=== PATIENT | male | born 1955 | race Caucasian/White ===

== ENCOUNTER 2018-05-16 16:00 | Inpatient (IN) | payer MEDICARE, OTHER ==
[~2018-05-16] VITALS: Ht 167.6 cm; Wt 69.5 kg
[2018-05-16] MEDS ORDERED: DOCUSATE SODIUM 283 MG/5 ML MINI-ENEMA PR PRN (17:00)
[2018-05-16] MEDS ORDERED: ACETAMINOPHEN 650 MG/20.3 ML SOLUTION UDCUP NG PRN (17:30)
[2018-05-16 18:57] VITALS: BP 150/78
[2018-05-16] MEDS ORDERED: DEXTROSE 50%-WATER 25 GM/50 ML SYRINGE IVP PRN (19:00)
[2018-05-16 19:50] VITALS: BP 162/89
[2018-05-16] MEDS: CARVEDILOL 6.25 MG TABLET NG SCH (19:51)
[2018-05-16 20:34] LABS: GLUCOMETER DEV NAME(LOC) 2WR.2; GLUCOSE,POINT OF CARE 87 MG/DL (70-110)
[2018-05-16 21:28] VITALS: BP 140/82
[2018-05-16] MEDS: ACETAMINOPHEN 650 MG/20.3 ML SOLUTION UDCUP NG PRN (21:35)
[2018-05-16] MEDS: SENNA 187 MG TABLET NG SCH (21:36)
[2018-05-16] MEDS: ATORVASTATIN CALCIUM 40 MG TABLET NG SCH (21:36)
[2018-05-16] MEDS: DOCUSATE SODIUM 100 MG CAPSULE NG SCH (21:36)
[2018-05-16] MEDS: HEPARIN SODIUM,PORCINE 5,000 UNITS/ML VIAL SQ SCH (23:58)
[2018-05-17 00:09] LABS: GLUCOMETER DEV NAME(LOC) 2WR.2; GLUCOSE,POINT OF CARE 125 MG/DL (70-110)
[2018-05-17 00:37] VITALS: BP 136/59
[2018-05-17 05:44] LABS: GLUCOMETER DEV NAME(LOC) 2WR.2; GLUCOSE,POINT OF CARE 156 MG/DL (70-110)
[2018-05-17] MEDS: LANSOPRAZOLE 30 MG SOLUBLE TABLET NG SCH ×2 (05:59→06:07)
[2018-05-17 06:35] LABS: BASOPHILS % (AUTO) 0.2 % (0.0-2.0); HEMOGLOBIN 11.5 g/dL (13.5-17.5); LYMPHOCYTES # (AUTO) 1.2 K/uL (1.0-4.8); LYMPHOCYTES % (AUTO) 15.6 % (22.0-44.0); MEAN CORPUSCULAR HEMOGLOBIN 35.6 pg (26.0-34.0); MEAN CORPUSCULAR HGB CONC 35.9 G/dL (31.0-37.0); MEAN CORPUSCULAR VOLUME 99 fL (80-100); MONOCYTES # (AUTO) 0.8 K/uL (0.1-1.0); MONOCYTES % (AUTO) 10.5 % (2.0-9.0); NEUTROPHILS # (AUTO) 5.4 K/uL (1.8-7.7); NEUTROPHILS % (AUTO) 70.7 % (40.0-70.0); PLATELET COUNT (AUTO) 176 K/uL (150-450); RED BLOOD CELL COUNT(AUTO) 3.22 MIL/uL (4.50-5.90); RED CELL DISTRIBUTION WIDTH 13.9 % (11.5-14.5)
[2018-05-17] MEDS: INSULIN REGULAR, HUMAN 100 UNITS/ML SQ PRN ×3 (06:38→20:15)
[2018-05-17 07:17] LABS: ALBUMIN 3.4 g/dL (3.4-5.0); BILIRUBIN,TOTAL 0.4 mg/dL (0.1-1.0); CALCIUM, TOTAL 8.9 mg/dL (8.8-10.5); CREATININE 13.06 mg/dL (0.60-1.30); POTASSIUM 4.3 mmol/L (3.5-5.1); TOTAL PROTEIN, SERUM 7.7 g/dL (6.4-8.2)
[2018-05-17 08:00] VITALS: BP 147/87
[2018-05-17] MEDS: MULTIVITAMINS WITH MINERALS, THERAPEUTIC TABLET NG SCH (08:17)
[2018-05-17] MEDS: DOCUSATE SODIUM 100 MG CAPSULE NG SCH ×2 (08:17→21:09)
[2018-05-17] MEDS: AmLODIPine BESYLATE 10 MG TABLET NG SCH (08:17)
[2018-05-17] MEDS: CARVEDILOL 6.25 MG TABLET NG SCH ×2 (08:17→19:58)
[2018-05-17] MEDS: ASPIRIN 81 MG CHEWABLE TABLET NG SCH (08:17)
[2018-05-17] MEDS: HEPARIN SODIUM,PORCINE 5,000 UNITS/ML VIAL SQ SCH (08:18)
[2018-05-17] MEDS: ACETAMINOPHEN 650 MG/20.3 ML SOLUTION UDCUP NG PRN ×2 (13:37→21:01)
[2018-05-17] MEDS: VITAMIN B COMP/VIT C/FOLIC ACID CAPSULE PO SCH (13:38)
[2018-05-17 18:29] LABS: GLUCOMETER DEV NAME(LOC) 2WR.1; GLUCOSE,POINT OF CARE 145 MG/DL (70-110)
[2018-05-17 19:10] VITALS: BP 127/76
[2018-05-17 19:28] LABS: GLUCOMETER DEV NAME(LOC) 2WR.2; GLUCOSE,POINT OF CARE 201 MG/DL (70-110)
[2018-05-17] MEDS: SEVELAMER CARBONATE 800 MG POWDER PACKET PO SCH (19:57)
[2018-05-17] MEDS ORDERED: AMLO-512 PO (20:23)
[2018-05-17] MEDS ORDERED: SUCR500T PO (20:23)
[2018-05-17] MEDS ORDERED: PANT40TA25 PO (20:23)
[2018-05-17] MEDS ORDERED: CARV6 PO (20:23)
[2018-05-17] MEDS ORDERED: ACET500C4 PO (20:23)
[2018-05-17] MEDS ORDERED: FOLI0.8T22 PO (20:23)
[2018-05-17] MEDS ORDERED: ATOR40TA28 PO (20:23)
[2018-05-17] MEDS: PHENOL 1.4% 177 ML SPRAY BOTTLE PO PRN (21:04)
[2018-05-17] MEDS: ATORVASTATIN CALCIUM 40 MG TABLET NG SCH (21:07)
[2018-05-17] MEDS: SENNA 187 MG TABLET NG SCH (21:07)
[2018-05-17 23:42] VITALS: BP 114/64
[2018-05-18] MEDS: PHENOL 1.4% 177 ML SPRAY BOTTLE PO PRN (00:07)
[2018-05-18] MEDS: ACETAMINOPHEN 650 MG/20.3 ML SOLUTION UDCUP NG PRN ×2 (01:01→21:30)
[2018-05-18 01:13] LABS: GLUCOMETER DEV NAME(LOC) 2WR.2; GLUCOSE,POINT OF CARE 115 MG/DL (70-110)
[2018-05-18 05:44] LABS: GLUCOMETER DEV NAME(LOC) 2WR.1; GLUCOSE,POINT OF CARE 173 MG/DL (70-110)
[2018-05-18] MEDS: LANSOPRAZOLE 30 MG SOLUBLE TABLET NG SCH (06:00)
[2018-05-18] MEDS: INSULIN REGULAR, HUMAN 100 UNITS/ML SQ PRN ×2 (06:03→12:42)
[2018-05-18 07:35] VITALS: BP 119/70
[2018-05-18] MEDS: SEVELAMER CARBONATE 800 MG POWDER PACKET PO SCH ×2 (08:24→17:27)
[2018-05-18] MEDS: VITAMIN B COMP/VIT C/FOLIC ACID CAPSULE PO SCH (08:25)
[2018-05-18] MEDS: CARVEDILOL 6.25 MG TABLET NG SCH ×2 (08:25→17:26)
[2018-05-18] MEDS: MULTIVITAMINS WITH MINERALS, THERAPEUTIC TABLET NG SCH (08:25)
[2018-05-18] MEDS: ASPIRIN 81 MG CHEWABLE TABLET NG SCH (08:25)
[2018-05-18] MEDS: DOCUSATE SODIUM 100 MG CAPSULE NG SCH ×2 (08:25→21:30)
[2018-05-18] MEDS ORDERED: ENOXAPARIN SODIUM 40 MG/0.4 ML PF SYRINGE SQ SCH (09:00)
[2018-05-18] MEDS: AmLODIPine BESYLATE 10 MG TABLET NG SCH (10:34)
[2018-05-18 12:54] LABS: GLUCOMETER DEV NAME(LOC) 2WR.2; GLUCOSE,POINT OF CARE 156 MG/DL (70-110)
[2018-05-18 15:49] VITALS: BP 101/66
[2018-05-18 17:27] VITALS: BP 123/57
[2018-05-18 17:55] LABS: GLUCOMETER DEV NAME(LOC) 2WR.1; GLUCOSE,POINT OF CARE 115 MG/DL (70-110)
[2018-05-18] MEDS: ATORVASTATIN CALCIUM 40 MG TABLET NG SCH (21:30)
[2018-05-18] MEDS: SENNA 187 MG TABLET NG SCH (21:30)
[2018-05-19] MEDS: INSULIN REGULAR, HUMAN 100 UNITS/ML SQ PRN ×2 (00:27→12:47)
[2018-05-19 00:29] LABS: GLUCOMETER DEV NAME(LOC) 2WR.2; GLUCOSE,POINT OF CARE 142 MG/DL (70-110)
[2018-05-19 01:00] VITALS: BP 113/67
[2018-05-19 05:38] LABS: GLUCOMETER DEV NAME(LOC) 2WR.1; GLUCOSE,POINT OF CARE 113 MG/DL (70-110)
[2018-05-19 06:19] LABS: GLUCOMETER DEV NAME(LOC) 2WR.1; GLUCOSE,POINT OF CARE 134 MG/DL (70-110)
[2018-05-19] MEDS: LANSOPRAZOLE 30 MG SOLUBLE TABLET NG SCH (06:19)
[2018-05-19 06:43] LABS: BASOPHILS % (AUTO) 0.5 % (0.0-2.0); HEMATOCRIT 32.4 % (41-53); HEMOGLOBIN 11.8 g/dL (13.5-17.5); LYMPHOCYTES # (AUTO) 1.5 K/uL (1.0-4.8); LYMPHOCYTES % (AUTO) 18.2 % (22.0-44.0); MEAN CORPUSCULAR HEMOGLOBIN 36.2 pg (26.0-34.0); MEAN CORPUSCULAR HGB CONC 36.3 G/dL (31.0-37.0); MEAN CORPUSCULAR VOLUME 100 fL (80-100); MONOCYTES % (AUTO) 11.4 % (2.0-9.0); NEUTROPHILS # (AUTO) 5.7 K/uL (1.8-7.7); NEUTROPHILS % (AUTO) 67.9 % (40.0-70.0); PLATELET COUNT (AUTO) 184 K/uL (150-450); RED BLOOD CELL COUNT(AUTO) 3.25 MIL/uL (4.50-5.90)
[2018-05-19 07:02] LABS: CALCIUM, TOTAL 10.2 mg/dL (8.8-10.5); CREATININE 13.19 mg/dL (0.60-1.30); PHOSPHORUS 7.7 mg/dL (2.5-4.9); POTASSIUM 4.2 mmol/L (3.5-5.1)
[2018-05-19] MEDS: CARVEDILOL 6.25 MG TABLET NG SCH ×2 (07:30→17:45)
[2018-05-19 08:00] VITALS: BP 127/65
[2018-05-19] MEDS: AmLODIPine BESYLATE 10 MG TABLET NG SCH (09:00)
[2018-05-19] MEDS: MULTIVITAMINS WITH MINERALS, THERAPEUTIC TABLET NG SCH (09:15)
[2018-05-19] MEDS: DOCUSATE SODIUM 100 MG CAPSULE NG SCH ×2 (09:15→20:17)
[2018-05-19] MEDS: VITAMIN B COMP/VIT C/FOLIC ACID CAPSULE PO SCH (09:16)
[2018-05-19] MEDS: SEVELAMER CARBONATE 800 MG POWDER PACKET PO SCH (09:16)
[2018-05-19] MEDS: ASPIRIN 81 MG CHEWABLE TABLET NG SCH (09:16)
[2018-05-19] MEDS: ENOXAPARIN SODIUM 30 MG/0.3 ML PF SYRINGE SQ SCH (09:16)
[2018-05-19] MEDS ORDERED: SODIUM CHLORIDE 0.9% 1,000 ML IV ONE ×2 (12:30)
[2018-05-19] MEDS: SEVELAMER CARBONATE 800 MG POWDER PACKET NG SCH ×2 (12:34→17:45)
[2018-05-19 13:24] LABS: GLUCOMETER DEV NAME(LOC) 2WR.2; GLUCOSE,POINT OF CARE 156 MG/DL (70-110)
[2018-05-19] MEDS ORDERED: SEVELAMER CARBONATE 800 MG POWDER PACKET PO SCH (16:00)
[2018-05-19 17:22] VITALS: BP 133/69
[2018-05-19 18:20] LABS: GLUCOMETER DEV NAME(LOC) 2WR.2; GLUCOSE,POINT OF CARE 132 MG/DL (70-110)
[2018-05-19 19:09] LABS: GLUCOMETER DEV NAME(LOC) 2WR.2; GLUCOSE,POINT OF CARE 135 MG/DL (70-110)
[2018-05-19] MEDS: SENNA 187 MG TABLET NG SCH (20:16)
[2018-05-19] MEDS: ATORVASTATIN CALCIUM 40 MG TABLET NG SCH (20:16)
[2018-05-19 21:14] LABS: GLUCOMETER DEV NAME(LOC) 2WR.2; GLUCOSE,POINT OF CARE 119 MG/DL (70-110)
[2018-05-19] MEDS: ACETAMINOPHEN 650 MG/20.3 ML SOLUTION UDCUP NG PRN (22:11)
[2018-05-20 00:05] LABS: GLUCOMETER DEV NAME(LOC) 2WR.1; GLUCOSE,POINT OF CARE 114 MG/DL (70-110)
[2018-05-20 00:50] VITALS: BP 117/57
[2018-05-20] MEDS: PHENOL 1.4% 177 ML SPRAY BOTTLE PO PRN (05:10)
[2018-05-20] MEDS: ACETAMINOPHEN 650 MG/20.3 ML SOLUTION UDCUP NG PRN (05:10)
[2018-05-20] MEDS: LANSOPRAZOLE 30 MG SOLUBLE TABLET NG SCH ×2 (05:20→06:08)
[2018-05-20 06:14] LABS: GLUCOMETER DEV NAME(LOC) 2WR.1; GLUCOSE,POINT OF CARE 135 MG/DL (70-110)
[2018-05-20 06:23] LABS: CALCIUM, TOTAL 9.2 mg/dL (8.8-10.5); CREATININE 8.85 mg/dL (0.60-1.30); PHOSPHORUS 5.7 mg/dL (2.5-4.9); POTASSIUM 3.6 mmol/L (3.5-5.1)
[2018-05-20] MEDS: CARVEDILOL 6.25 MG TABLET NG SCH ×2 (07:30→17:16)
[2018-05-20 08:00] VITALS: BP 113/64
[2018-05-20] MEDS: ASPIRIN 81 MG CHEWABLE TABLET NG SCH (08:06)
[2018-05-20] MEDS: DOCUSATE SODIUM 100 MG CAPSULE NG SCH ×2 (08:07→20:40)
[2018-05-20] MEDS: MULTIVITAMINS WITH MINERALS, THERAPEUTIC TABLET NG SCH (08:07)
[2018-05-20] MEDS: VITAMIN B COMP/VIT C/FOLIC ACID CAPSULE PO SCH (08:07)
[2018-05-20] MEDS: SEVELAMER CARBONATE 800 MG POWDER PACKET NG SCH ×3 (08:07→17:16)
[2018-05-20] MEDS: ENOXAPARIN SODIUM 30 MG/0.3 ML PF SYRINGE SQ SCH (08:07)
[2018-05-20] MEDS: AmLODIPine BESYLATE 10 MG TABLET NG SCH (08:08)
[2018-05-20 15:30] VITALS: BP 149/77
[2018-05-20 18:11] VITALS: BP 142/72
[2018-05-20 18:44] LABS: GLUCOMETER DEV NAME(LOC) 2WR.2; GLUCOSE,POINT OF CARE 128 MG/DL (70-110)
[2018-05-20 20:37] VITALS: BP 141/69
[2018-05-20] MEDS: ATORVASTATIN CALCIUM 40 MG TABLET NG SCH (20:40)
[2018-05-20] MEDS: SENNA 187 MG TABLET NG SCH (20:40)
[2018-05-21] VITALS: BP 133/67
[2018-05-21 00:09] LABS: GLUCOMETER DEV NAME(LOC) 2WR.2; GLUCOSE,POINT OF CARE 124 MG/DL (70-110)
[2018-05-21 06:09] LABS: GLUCOMETER DEV NAME(LOC) 2WR.2; GLUCOSE,POINT OF CARE 110 MG/DL (70-110)
[2018-05-21] MEDS: LANSOPRAZOLE 30 MG SOLUBLE TABLET NG SCH (06:24)
[2018-05-21 07:30] LABS: CHOL/HDL RATIO 3.4 (4.2-7.3)
[2018-05-21] MEDS: CARVEDILOL 6.25 MG TABLET NG SCH ×2 (07:30→16:45)
[2018-05-21] MEDS: ASPIRIN 81 MG CHEWABLE TABLET NG SCH (07:44)
[2018-05-21] MEDS: SEVELAMER CARBONATE 800 MG POWDER PACKET NG SCH ×3 (07:44→16:45)
[2018-05-21] MEDS: ENOXAPARIN SODIUM 30 MG/0.3 ML PF SYRINGE SQ SCH (07:44)
[2018-05-21] MEDS: DOCUSATE SODIUM 100 MG CAPSULE NG SCH (07:44)
[2018-05-21] MEDS: MULTIVITAMINS WITH MINERALS, THERAPEUTIC TABLET NG SCH (07:44)
[2018-05-21] MEDS: VITAMIN B COMP/VIT C/FOLIC ACID CAPSULE PO SCH (07:45)
[2018-05-21] MEDS: AmLODIPine BESYLATE 10 MG TABLET NG SCH (07:45)
[2018-05-21 08:00] VITALS: BP 103/57
[2018-05-21 15:18] LABS: GLUCOMETER DEV NAME(LOC) 2WR.2; GLUCOSE,POINT OF CARE 112 MG/DL (70-110)
[2018-05-21 16:09] VITALS: BP 159/76
[2018-05-21 16:28] LABS: INR 0.9 (0.9-1.1); PROTHROMBIN TIME 9.5 SEC (9.4-11.6)
[2018-05-21 17:00] VITALS: BP 151/73
[2018-05-21 17:19] LABS: GLUCOMETER DEV NAME(LOC) 2WR.2; GLUCOSE,POINT OF CARE 87 MG/DL (70-110)
[2018-05-21] MEDS: DOCUSATE SODIUM 250 MG CAPSULE NG SCH (19:57)
[2018-05-21] MEDS: SENNA 187 MG TABLET NG SCH (19:57)
[2018-05-21] MEDS: ATORVASTATIN CALCIUM 40 MG TABLET NG SCH (19:57)
[2018-05-21 20:34] LABS: GLUCOMETER DEV NAME(LOC) 2WR.2; GLUCOSE,POINT OF CARE 89 MG/DL (70-110)
[2018-05-21 23:50] VITALS: BP 142/79
[2018-05-22 01:04] LABS: GLUCOMETER DEV NAME(LOC) 2WR.2; GLUCOSE,POINT OF CARE 99 MG/DL (70-110)
[2018-05-22 05:55] LABS: GLUCOMETER DEV NAME(LOC) 2WR.2; GLUCOSE,POINT OF CARE 94 MG/DL (70-110)
[2018-05-22] MEDS: LANSOPRAZOLE 30 MG SOLUBLE TABLET NG SCH (06:25)
[2018-05-22] MEDS: CARVEDILOL 6.25 MG TABLET NG SCH ×2 (07:30→17:39)
[2018-05-22 08:00] VITALS: BP 154/77
[2018-05-22] MEDS: ENOXAPARIN SODIUM 30 MG/0.3 ML PF SYRINGE SQ SCH (08:41)
[2018-05-22] MEDS: VITAMIN B COMP/VIT C/FOLIC ACID CAPSULE PO SCH (08:41)
[2018-05-22] MEDS: SEVELAMER CARBONATE 800 MG POWDER PACKET NG SCH ×3 (08:41→17:39)
[2018-05-22] MEDS: ASPIRIN 81 MG CHEWABLE TABLET NG SCH (08:43)
[2018-05-22] MEDS: DOCUSATE SODIUM 250 MG CAPSULE NG SCH ×2 (08:43→21:08)
[2018-05-22] MEDS: AmLODIPine BESYLATE 10 MG TABLET NG SCH (08:43)
[2018-05-22] MEDS ORDERED: SODIUM CHLORIDE 0.9% 1,000 ML IV ONE ×2 (11:59)
[2018-05-22 14:14] LABS: GLUCOMETER DEV NAME(LOC) 2WR.2; GLUCOSE,POINT OF CARE 99 MG/DL (70-110)
[2018-05-22 17:26] VITALS: BP 152/75
[2018-05-22 17:35] LABS: GLUCOMETER DEV NAME(LOC) 2WR.1; GLUCOSE,POINT OF CARE 131 MG/DL (70-110)
[2018-05-22] MEDS: SENNA 187 MG TABLET NG SCH (21:08)
[2018-05-22] MEDS: ATORVASTATIN CALCIUM 40 MG TABLET NG SCH (21:08)
[2018-05-22 22:28] LABS: GLUCOMETER DEV NAME(LOC) 2WR.2; GLUCOSE,POINT OF CARE 74 MG/DL (70-110)
[2018-05-22 23:53] LABS: GLUCOMETER DEV NAME(LOC) 2WR.2; GLUCOSE,POINT OF CARE 100 MG/DL (70-110)
[2018-05-23] VITALS: BP 144/80
[2018-05-23] MEDS: LANSOPRAZOLE 30 MG SOLUBLE TABLET NG SCH (05:08)
[2018-05-23 05:39] LABS: GLUCOMETER DEV NAME(LOC) 2WR.1; GLUCOSE,POINT OF CARE 82 MG/DL (70-110)
[2018-05-23 06:35] LABS: BASOPHILS % (AUTO) 0.5 % (0.0-2.0); EOSINOPHILS % (AUTO) 2.2 % (1.0-6.0); HEMATOCRIT 28.3 % (41-53); HEMOGLOBIN 10.6 g/dL (13.5-17.5); LYMPHOCYTES # (AUTO) 1.3 K/uL (1.0-4.8); LYMPHOCYTES % (AUTO) 20.2 % (22.0-44.0); MEAN CORPUSCULAR HEMOGLOBIN 36.5 pg (26.0-34.0); MEAN CORPUSCULAR VOLUME 97 fL (80-100); MONOCYTES # (AUTO) 0.7 K/uL (0.1-1.0); MONOCYTES % (AUTO) 11.7 % (2.0-9.0); NEUTROPHILS # (AUTO) 4.2 K/uL (1.8-7.7); NEUTROPHILS % (AUTO) 65.4 % (40.0-70.0); PLATELET COUNT (AUTO) 230 K/uL (150-450); RED BLOOD CELL COUNT(AUTO) 2.91 MIL/uL (4.50-5.90); RED CELL DISTRIBUTION WIDTH 13.6 % (11.5-14.5)
[2018-05-23 07:00] LABS: CALCIUM, TOTAL 9.4 mg/dL (8.8-10.5); CREATININE 8.53 mg/dL (0.60-1.30); PHOSPHORUS 5.6 mg/dL (2.5-4.9); POTASSIUM 4.3 mmol/L (3.5-5.1)
[2018-05-23 07:30] VITALS: BP 148/75
[2018-05-23] MEDS: DOCUSATE SODIUM 250 MG CAPSULE NG SCH ×2 (08:53→20:50)
[2018-05-23] MEDS: CARVEDILOL 6.25 MG TABLET NG SCH ×2 (08:53→17:34)
[2018-05-23] MEDS: ENOXAPARIN SODIUM 30 MG/0.3 ML PF SYRINGE SQ SCH (08:54)
[2018-05-23] MEDS: ASPIRIN 81 MG CHEWABLE TABLET NG SCH (08:54)
[2018-05-23] MEDS: VITAMIN B COMP/VIT C/FOLIC ACID CAPSULE PO SCH (08:54)
[2018-05-23] MEDS: AmLODIPine BESYLATE 10 MG TABLET NG SCH (08:54)
[2018-05-23] MEDS: SEVELAMER CARBONATE 800 MG POWDER PACKET NG SCH ×3 (08:55→17:34)
[2018-05-23 09:20] LABS: GLUCOMETER DEV NAME(LOC) 2WR.2; GLUCOSE,POINT OF CARE 95 MG/DL (70-110)
[2018-05-23] MEDS ORDERED: CeFAZolin 2 GM/DEXTROSE 50 ML IV ONE ×2 (10:30→11:59)
[2018-05-23] MEDS ORDERED: SODIUM CHLORIDE 0.9% 1,000 ML IV ONE ×2 (11:35→12:00)
[2018-05-23 11:49] LABS: GLUCOMETER DEV NAME(LOC) 2WR.1; GLUCOSE,POINT OF CARE 98 MG/DL (70-110)
[2018-05-23 15:30] VITALS: BP 154/80
[2018-05-23] MEDS: DEXTROSE 5%-0.9% SODIUM CHL 1,000 ML IV SCH (16:35)
[2018-05-23 17:09] LABS: GLUCOMETER DEV NAME(LOC) 2WR.1; GLUCOSE,POINT OF CARE 81 MG/DL (70-110)
[2018-05-23 17:54] LABS: GLUCOMETER DEV NAME(LOC) 2WR.2; GLUCOSE,POINT OF CARE 71 MG/DL (70-110)
[2018-05-23 17:55] VITALS: BP 162/81
[2018-05-23] MEDS: ACETAMINOPHEN 650 MG/20.3 ML SOLUTION UDCUP NG PRN (17:58)
[2018-05-23 18:55] VITALS: BP 143/78
[2018-05-23] MEDS: SENNA 187 MG TABLET NG SCH (20:50)
[2018-05-23] MEDS: ATORVASTATIN CALCIUM 40 MG TABLET NG SCH (20:50)
[2018-05-23 22:44] LABS: GLUCOMETER DEV NAME(LOC) 2WR.2; GLUCOSE,POINT OF CARE 98 MG/DL (70-110)
[2018-05-24] VITALS: BP 140/80
[2018-05-24 00:35] LABS: GLUCOMETER DEV NAME(LOC) 2WR.1; GLUCOSE,POINT OF CARE 97 MG/DL (70-110)
[2018-05-24] MEDS ORDERED: PROPOFOL 1% 20 ML VIAL IVP ONE (01:57)
[2018-05-24] MEDS ORDERED: LIDOCAINE/PF 2% 5 ML VIAL IM ONE (01:57)
[2018-05-24] MEDS: DEXTROSE 5%-0.9% SODIUM CHL 1,000 ML IV SCH (04:24)
[2018-05-24] MEDS: ACETAMINOPHEN 650 MG/20.3 ML SOLUTION UDCUP NG PRN (04:53)
[2018-05-24] MEDS: LANSOPRAZOLE 30 MG SOLUBLE TABLET NG SCH (06:01)
[2018-05-24 06:25] LABS: GLUCOMETER DEV NAME(LOC) 2WR.1; GLUCOSE,POINT OF CARE 95 MG/DL (70-110)
[2018-05-24 07:30] VITALS: BP 147/73
[2018-05-24] MEDS: CARVEDILOL 6.25 MG TABLET NG SCH ×2 (07:30→18:30)
[2018-05-24 08:00] VITALS: BP 129/72
[2018-05-24] MEDS: ENOXAPARIN SODIUM 30 MG/0.3 ML PF SYRINGE SQ SCH (08:02)
[2018-05-24] MEDS: VITAMIN B COMP/VIT C/FOLIC ACID CAPSULE PO SCH (08:02)
[2018-05-24] MEDS: ASPIRIN 81 MG CHEWABLE TABLET NG SCH (08:02)
[2018-05-24] MEDS: SEVELAMER CARBONATE 800 MG POWDER PACKET NG SCH ×3 (08:02→18:30)
[2018-05-24] MEDS: DOCUSATE SODIUM 250 MG CAPSULE NG SCH ×2 (08:02→20:23)
[2018-05-24] MEDS: AmLODIPine BESYLATE 10 MG TABLET NG SCH (08:03)
[2018-05-24] MEDS ORDERED: SODIUM CHLORIDE 0.9% 1,000 ML IV ONE ×3 (11:30→13:29)
[2018-05-24 12:44] LABS: GLUCOMETER DEV NAME(LOC) 2WR.2; GLUCOSE,POINT OF CARE 110 MG/DL (70-110)
[2018-05-24 18:31] VITALS: BP 155/87
[2018-05-24 18:40] LABS: GLUCOMETER DEV NAME(LOC) 2WR.1; GLUCOSE,POINT OF CARE 61 MG/DL (70-110)
[2018-05-24 19:19] LABS: GLUCOMETER DEV NAME(LOC) 2WR.1; GLUCOSE,POINT OF CARE 82 MG/DL (70-110)
[2018-05-24] MEDS: SENNA 187 MG TABLET NG SCH (20:23)
[2018-05-24] MEDS: ATORVASTATIN CALCIUM 40 MG TABLET NG SCH (20:23)
[2018-05-24 21:00] VITALS: BP 116/61
[2018-05-25] VITALS (7 sets, daily range): BP systolic 117–153; BP diastolic 71–102
[2018-05-25] MEDS ORDERED: SODIUM CHLORIDE 154 MEQ in DEXTROSE 10%-WATER 1,000 ML IV ONE ×2
[2018-05-25 00:59] LABS: GLUCOMETER DEV NAME(LOC) 2WR.1; GLUCOSE,POINT OF CARE 95 MG/DL (70-110)
[2018-05-25 00:59] LABS: GLUCOMETER DEV NAME(LOC) 2WR.2; GLUCOSE,POINT OF CARE 102 MG/DL (70-110)
[2018-05-25] MEDS: LANSOPRAZOLE 30 MG SOLUBLE TABLET NG SCH (05:44)
[2018-05-25 06:29] LABS: GLUCOMETER DEV NAME(LOC) 2WR.1; GLUCOSE,POINT OF CARE 101 MG/DL (70-110)
[2018-05-25] MEDS: VITAMIN B COMP/VIT C/FOLIC ACID CAPSULE PO SCH (08:37)
[2018-05-25] MEDS: SEVELAMER CARBONATE 800 MG POWDER PACKET NG SCH ×3 (08:37→17:04)
[2018-05-25] MEDS: ENOXAPARIN SODIUM 30 MG/0.3 ML PF SYRINGE SQ SCH ×2 (08:37→09:00)
[2018-05-25] MEDS: ASPIRIN 81 MG CHEWABLE TABLET NG SCH (08:38)
[2018-05-25] MEDS: DOCUSATE SODIUM 250 MG CAPSULE NG SCH (08:38)
[2018-05-25] MEDS: CARVEDILOL 6.25 MG TABLET NG SCH ×2 (08:38→17:03)
[2018-05-25] MEDS: AmLODIPine BESYLATE 10 MG TABLET NG SCH (08:38)
[2018-05-25] MEDS ORDERED: LIDOCAINE 1%/EPI 1:200,000/PF 10 ML VIAL ONE (09:16)
[2018-05-25] MEDS ORDERED: SODIUM CHLORIDE 0.9% 1,000 ML IV ONE ×4 (09:16→11:28)
[2018-05-25 13:39] LABS: GLUCOMETER DEV NAME(LOC) 2WR.2; GLUCOSE,POINT OF CARE 109 MG/DL (70-110)
[2018-05-25] MEDS ORDERED: HYDROmorphone 2 MG/ML SYRINGE IVP PRN (16:15)
[2018-05-25 17:40] LABS: GLUCOMETER DEV NAME(LOC) 2WR.2; GLUCOSE,POINT OF CARE 139 MG/DL (70-110)
[2018-05-25 18:37] LABS: BASOPHILS % (AUTO) 0.3 % (0.0-2.0); EOSINOPHILS % (AUTO) 1.7 % (1.0-6.0); HEMATOCRIT 24.4 % (41-53); HEMOGLOBIN 8.6 g/dL (13.5-17.5); LYMPHOCYTES # (AUTO) 1.1 K/uL (1.0-4.8); LYMPHOCYTES % (AUTO) 11.1 % (22.0-44.0); MEAN CORPUSCULAR HEMOGLOBIN 35.7 pg (26.0-34.0); MEAN CORPUSCULAR HGB CONC 35.1 G/dL (31.0-37.0); MEAN CORPUSCULAR VOLUME 102 fL (80-100); MONOCYTES # (AUTO) 0.7 K/uL (0.1-1.0); MONOCYTES % (AUTO) 7.1 % (2.0-9.0); NEUTROPHILS % (AUTO) 79.8 % (40.0-70.0); PLATELET COUNT (AUTO) 216 K/uL (150-450); RED BLOOD CELL COUNT(AUTO) 2.41 MIL/uL (4.50-5.90); RED CELL DISTRIBUTION WIDTH 13.4 % (11.5-14.5)
[2018-05-25 19:30] LABS: CALCIUM, TOTAL 7.3 mg/dL (8.8-10.5); CREATININE 7.31 mg/dL (0.60-1.30); POTASSIUM 3.7 mmol/L (3.5-5.1)
[2018-05-25 19:32] LABS: ALBUMIN 2.1 g/dL (3.4-5.0); BILIRUBIN,TOTAL 0.3 mg/dL (0.1-1.0); TOTAL PROTEIN, SERUM 5.4 g/dL (6.4-8.2)
[2018-05-25 19:34] LABS: INR 1.1 (0.9-1.1); PROTHROMBIN TIME 11.1 SEC (9.4-11.6)
[2018-05-25] MEDS ORDERED: METOCLOPRAMIDE HCL 5 MG/ML 2 ML VIAL IVP ONE (19:45)
[2018-05-25] MEDS ORDERED: FentaNYL CITRATE-PF 100 MCG/2 ML VIAL IVP ONE (20:27)
[2018-05-25] MEDS ORDERED: MIDAZOLAM HCL 2 MG/2 ML VIAL IVP ONE (20:27)
[2018-05-25 22:34] LABS: GLUCOMETER DEV NAME(LOC) 2WR.2; GLUCOSE,POINT OF CARE 117 MG/DL (70-110)
[2018-05-26] MEDS ORDERED: SERTRALINE HCL 50 MG TABLET GT SCH (09:00)
[2018-05-29] MEDS ORDERED: [UNRECOGNIZED DRUG - CODE] RC (14:52)
== END 2018-05-25 20:28 | disposition short-term general hospital (02) | DRG 64 ==
LOC: 2WR 16:00
PROVIDERS: ADMIT Physical Medicine & Rehabilitation; ATTEND Physical Medicine & Rehabilitation
PROC: 0DJ08ZZ Inspection of Upper Intestinal Tract, Via Natural or Artificial Opening Endoscopic (ICD-10-PCS; 2018-05-23)
PROC: 0DH63UZ Insertion of Feeding Device into Stomach, Percutaneous Approach (ICD-10-PCS; principal; 2018-05-25 11:00)
DX: I63.9 Cerebral infarction, unspecified (principal); N18.6 End stage renal disease; I69.354 Hemiplegia and hemiparesis following cerebral infarction affecting left non-dominant side; I12.0 Hypertensive chronic kidney disease with stage 5 chronic kidney disease or end stage renal disease; K59.2 Neurogenic bowel, not elsewhere classified; I69.391 Dysphagia following cerebral infarction; E11.22 Type 2 diabetes mellitus with diabetic chronic kidney disease; E11.319 Type 2 diabetes mellitus with unspecified diabetic retinopathy without macular edema; E78.5 Hyperlipidemia, unspecified; N31.9 Neuromuscular dysfunction of bladder, unspecified; Z82.3 Family history of stroke; Z83.3 Family history of diabetes mellitus; I25.2 Old myocardial infarction; Z99.2 Dependence on renal dialysis
CPT/HCPCS: 74018; 84100; 86850; 86900; 86901; 86920; 87081; 87340; 88305; 88312; 92526; 92610; 93005; 97110; 97112; 97116; 97150; 97162; 97166; 97530; 97535; 99366; J0690; J1170; J1644; J1650; J2250; J2704; J2765; J3010; J3490; J7030; J7042; J7131

== ENCOUNTER 2018-05-25 20:20 | Inpatient (IN) | payer MEDICARE, OTHER ==
[2018-05-25 20:20] VITALS: BP 148/80
[~2018-05-25 20:20] MED LIST: ACET500C4 PO; AMLO-512 PO; ATOR40TA28 PO; CARV6 PO; FOLI0.8T22 PO; PANT40TA25 PO; SUCR500T PO
[2018-05-25] MEDS ORDERED: EPINEPHrine 1:10,000 [1 MG/10 ML] SYRINGE ONE (21:32)
[2018-05-25] MEDS ORDERED: PHENOL 1.4% 177 ML SPRAY BOTTLE PO PRN (22:00)
[2018-05-25] MEDS ORDERED: DEXTROSE 50%-WATER 25 GM/50 ML SYRINGE IVP PRN (22:00)
[2018-05-25] MEDS ORDERED: DOCUSATE SODIUM 283 MG/5 ML MINI-ENEMA PR PRN (22:00)
[2018-05-25] MEDS: SEVELAMER CARBONATE 800 MG POWDER PACKET GT SCH (22:15)
[2018-05-25 22:25] VITALS: BP 150/86
[2018-05-25] MEDS: HYDROmorphone 2 MG/ML SYRINGE IVP PRN (22:28)
[2018-05-25] MEDS: PANTOPRAZOLE SODIUM 40 MG/VIAL IVP SCH (22:39)
[2018-05-25] MEDS: SENNOSIDES 8.8 MG/5 ML SYRUP ORAL.SYG GT SCH (22:45)
[2018-05-25 23:25] VITALS: BP 148/78
[2018-05-25] MEDS ORDERED: PNEUMOCOCCAL VACCINE POLYVALENT 0.5 ML VIAL [PPSV23] IM ONE (23:30)
[2018-05-26] VITALS (12 sets, daily range): BP systolic 105–154; BP diastolic 54–87
[2018-05-26] MEDS: INSULIN REGULAR, HUMAN 100 UNITS/ML SQ PRN ×3 (00:09→23:43)
[2018-05-26 00:35] LABS: HEMATOCRIT 24.7 % (41-53); HEMOGLOBIN 9.5 g/dL (13.5-17.5)
[2018-05-26 00:40] LABS: GLUCOSE,POINT OF CARE 114 MG/DL (70-110)
[2018-05-26] MEDS ORDERED: SODIUM CHLORIDE 0.9% 1,000 ML IV ONE ×2 (02:03→18:03)
[2018-05-26] MEDS ORDERED: HydrALAZINE HCL 20 MG/ML VIAL IVP PRN (02:30)
[2018-05-26] MEDS ORDERED: SODIUM CHLORIDE 0.9% 250 ML IV ONE (02:30)
[2018-05-26] MEDS ORDERED: LORazepam 2 MG/ML VIAL IVP ONE (02:30)
[2018-05-26 02:40] LABS: BASOPHILS % (AUTO) 0.4 % (0.0-2.0); EOSINOPHILS % (AUTO) 0.6 % (1.0-6.0); HEMOGLOBIN 8.6 g/dL (13.5-17.5); LYMPHOCYTES # (AUTO) 1.3 K/uL (1.0-4.8); LYMPHOCYTES % (AUTO) 9.8 % (22.0-44.0); MEAN CORPUSCULAR HEMOGLOBIN 35.3 pg (26.0-34.0); MEAN CORPUSCULAR VOLUME 98 fL (80-100); MONOCYTES # (AUTO) 0.8 K/uL (0.1-1.0); MONOCYTES % (AUTO) 5.5 % (2.0-9.0); NEUTROPHILS # (AUTO) 11.4 K/uL (1.8-7.7); NEUTROPHILS % (AUTO) 83.7 % (40.0-70.0); PLATELET COUNT (AUTO) 267 K/uL (150-450); RED BLOOD CELL COUNT(AUTO) 2.44 MIL/uL (4.50-5.90); RED CELL DISTRIBUTION WIDTH 13.6 % (11.5-14.5)
[2018-05-26] MEDS ORDERED: 0.9% SODIUM CHLORIDE 10 ML VIAL IVP ONE (05:50)
[2018-05-26] MEDS ORDERED: PHENYLEPHRINE HCL 10 MG/ML VIAL IVP ONE (05:50)
[2018-05-26] MEDS ORDERED: PROPOFOL 1% 20 ML VIAL IVP ONE (05:50)
[2018-05-26 06:03] LABS: HEMOGLOBIN 7.4 g/dL (13.5-17.5)
[2018-05-26 06:25] LABS: ALBUMIN 2.6 g/dL (3.4-5.0); BILIRUBIN,TOTAL 0.3 mg/dL (0.1-1.0); CALCIUM, TOTAL 8.5 mg/dL (8.8-10.5); CREATININE 9.39 mg/dL (0.60-1.30); POTASSIUM 4.3 mmol/L (3.5-5.1); TOTAL PROTEIN, SERUM 6.1 g/dL (6.4-8.2)
[2018-05-26] MEDS: PANTOPRAZOLE SODIUM 40 MG/VIAL IVP SCH ×2 (08:38→20:15)
[2018-05-26] MEDS: SERTRALINE HCL 50 MG TABLET GT SCH (08:38)
[2018-05-26] MEDS: VITAMIN B COMP/VIT C/FOLIC ACID CAPSULE GT SCH (08:38)
[2018-05-26] MEDS: DOCUSATE SODIUM 250 MG CAPSULE GT SCH ×2 (08:38→20:54)
[2018-05-26] MEDS: SEVELAMER CARBONATE 800 MG POWDER PACKET GT SCH ×3 (08:39→16:41)
[2018-05-26] MEDS: HYDROmorphone 2 MG/ML SYRINGE IVP PRN (09:06)
[2018-05-26 12:31] LABS: BASOPHILS % (AUTO) 0.5 % (0.0-2.0); EOSINOPHILS % (AUTO) 0.3 % (1.0-6.0); HEMOGLOBIN 7.2 g/dL (13.5-17.5); LYMPHOCYTES # (AUTO) 1.7 K/uL (1.0-4.8); LYMPHOCYTES % (AUTO) 12.2 % (22.0-44.0); MEAN CORPUSCULAR HEMOGLOBIN 35.9 pg (26.0-34.0); MEAN CORPUSCULAR HGB CONC 36.4 G/dL (31.0-37.0); MEAN CORPUSCULAR VOLUME 99 fL (80-100); MONOCYTES # (AUTO) 0.9 K/uL (0.1-1.0); MONOCYTES % (AUTO) 6.5 % (2.0-9.0); NEUTROPHILS % (AUTO) 80.5 % (40.0-70.0); PLATELET COUNT (AUTO) 206 K/uL (150-450); RED CELL DISTRIBUTION WIDTH 13.7 % (11.5-14.5)
[2018-05-26 12:33] LABS: HEMATOCRIT 19.7 % (41-53)
[2018-05-26] MEDS: ACETAMINOPHEN 650 MG/20.3 ML SOLUTION UDCUP GT PRN (16:41)
[2018-05-26 19:31] LABS: HEMOGLOBIN 6.6 g/dL (13.5-17.5)
[2018-05-26 19:32] LABS: HEMATOCRIT 17.8 % (41-53)
[2018-05-26] MEDS: ATORVASTATIN CALCIUM 40 MG TABLET GT SCH (20:53)
[2018-05-26] MEDS: SENNOSIDES 8.8 MG/5 ML SYRUP ORAL.SYG GT SCH (20:54)
[2018-05-26 22:04] LABS: HEMATOCRIT 25.9 % (41-53); HEMOGLOBIN 9.4 g/dL (13.5-17.5)
[2018-05-27] VITALS: BP 128/66
[2018-05-27 04:00] VITALS: BP 114/68
[2018-05-27 05:16] LABS: CALCIUM, TOTAL 9.2 mg/dL (8.8-10.5); CREATININE 6.19 mg/dL (0.60-1.30); POTASSIUM 3.8 mmol/L (3.5-5.1)
[2018-05-27 06:00] LABS: GLUCOSE,POINT OF CARE 87 MG/DL (70-110)
[2018-05-27 06:00] LABS: GLUCOSE,POINT OF CARE 84 MG/DL (70-110)
[2018-05-27] MEDS: INSULIN REGULAR, HUMAN 100 UNITS/ML SQ PRN (06:16)
[2018-05-27 06:44] LABS: GLUCOSE,POINT OF CARE 108 MG/DL (70-110)
[2018-05-27 08:00] VITALS: BP 129/72
[2018-05-27] MEDS: SEVELAMER CARBONATE 800 MG POWDER PACKET GT SCH ×3 (09:03→17:42)
[2018-05-27] MEDS: PANTOPRAZOLE SODIUM 40 MG/VIAL IVP SCH ×2 (09:03→20:21)
[2018-05-27] MEDS: VITAMIN B COMP/VIT C/FOLIC ACID CAPSULE GT SCH (09:03)
[2018-05-27] MEDS: DOCUSATE SODIUM 250 MG CAPSULE GT SCH ×2 (09:03→20:21)
[2018-05-27] MEDS: SERTRALINE HCL 50 MG TABLET GT SCH (09:04)
[2018-05-27] MEDS: ACETAMINOPHEN 650 MG/20.3 ML SOLUTION UDCUP GT PRN ×2 (09:08→12:56)
[2018-05-27 09:38] LABS: BASOPHILS % (AUTO) 1.4 % (0.0-2.0); EOSINOPHILS % (AUTO) 2.4 % (1.0-6.0); HEMOGLOBIN 8.9 g/dL (13.5-17.5); LYMPHOCYTES # (AUTO) 1.7 K/uL (1.0-4.8); MEAN CORPUSCULAR HEMOGLOBIN 35.2 pg (26.0-34.0); MEAN CORPUSCULAR VOLUME 94 fL (80-100); MONOCYTES # (AUTO) 0.3 K/uL (0.1-1.0); MONOCYTES % (AUTO) 3.5 % (2.0-9.0); NEUTROPHILS % (AUTO) 74.7 % (40.0-70.0); PLATELET COUNT (AUTO) 276 K/uL (150-450); RED BLOOD CELL COUNT(AUTO) 2.53 MIL/uL (4.50-5.90)
[2018-05-27 10:08] LABS: RED CELL DISTRIBUTION WIDTH 17.7 % (11.5-14.5)
[2018-05-27 12:00] VITALS: BP 104/66
[2018-05-27 16:00] VITALS: BP 141/69
[2018-05-27 20:00] VITALS: BP 155/76
[2018-05-27] MEDS: ATORVASTATIN CALCIUM 40 MG TABLET GT SCH (20:21)
[2018-05-27] MEDS: SENNOSIDES 8.8 MG/5 ML SYRUP ORAL.SYG GT SCH (20:22)
[2018-05-28] VITALS (13 sets, daily range): BP systolic 145–172; BP diastolic 62–90
[2018-05-28 01:04] LABS: GLUCOMETER DEV NAME(LOC) 6N.1; GLUCOSE,POINT OF CARE 124 MG/DL (70-110)
[2018-05-28] MEDS: INSULIN REGULAR, HUMAN 100 UNITS/ML SQ PRN (05:45)
[2018-05-28 07:39] LABS: BASOPHILS % (AUTO) 0.3 % (0.0-2.0); EOSINOPHILS % (AUTO) 2.7 % (1.0-6.0); HEMATOCRIT 22.4 % (41-53); HEMOGLOBIN 8.2 g/dL (13.5-17.5); LYMPHOCYTES # (AUTO) 1.1 K/uL (1.0-4.8); LYMPHOCYTES % (AUTO) 13.4 % (22.0-44.0); MEAN CORPUSCULAR HEMOGLOBIN 34.3 pg (26.0-34.0); MEAN CORPUSCULAR HGB CONC 36.5 G/dL (31.0-37.0); MEAN CORPUSCULAR VOLUME 94 fL (80-100); MONOCYTES # (AUTO) 0.5 K/uL (0.1-1.0); MONOCYTES % (AUTO) 6.1 % (2.0-9.0); NEUTROPHILS # (AUTO) 6.6 K/uL (1.8-7.7); NEUTROPHILS % (AUTO) 77.5 % (40.0-70.0); PLATELET COUNT (AUTO) 191 K/uL (150-450); RED BLOOD CELL COUNT(AUTO) 2.38 MIL/uL (4.50-5.90); RED CELL DISTRIBUTION WIDTH 16.7 % (11.5-14.5)
[2018-05-28 07:57] LABS: CALCIUM, TOTAL 9.7 mg/dL (8.8-10.5); CREATININE 9.05 mg/dL (0.60-1.30); POTASSIUM 3.9 mmol/L (3.5-5.1)
[2018-05-28] MEDS: SEVELAMER CARBONATE 800 MG POWDER PACKET GT SCH ×3 (08:00→18:12)
[2018-05-28] MEDS: DOCUSATE SODIUM 250 MG CAPSULE GT SCH ×2 (10:08→20:56)
[2018-05-28] MEDS: PANTOPRAZOLE SODIUM 40 MG/VIAL IVP SCH ×2 (10:08→20:56)
[2018-05-28] MEDS: VITAMIN B COMP/VIT C/FOLIC ACID CAPSULE GT SCH (10:08)
[2018-05-28] MEDS: SERTRALINE HCL 50 MG TABLET GT SCH (10:39)
[2018-05-28] MEDS ORDERED: EPOETIN ALFA 10,000 UNITS/ML VIAL SQ ONE (10:45)
[2018-05-28 11:29] LABS: GLUCOSE,POINT OF CARE 133 MG/DL (70-110)
[2018-05-28 11:29] LABS: GLUCOSE,POINT OF CARE 140 MG/DL (70-110)
[2018-05-28 11:29] LABS: GLUCOMETER DEV NAME(LOC) 6N.2; GLUCOSE,POINT OF CARE 151 MG/DL (70-110)
[2018-05-28 11:29] LABS: GLUCOSE,POINT OF CARE 89 MG/DL (70-110)
[2018-05-28 11:29] LABS: GLUCOSE,POINT OF CARE 117 MG/DL (70-110)
[2018-05-28 11:29] LABS: GLUCOSE,POINT OF CARE 141 MG/DL (70-110)
[2018-05-28] MEDS ORDERED: SODIUM CHLORIDE 0.9% 500 ML IV ONE (12:49)
[2018-05-28 13:59] LABS: GLUCOMETER DEV NAME(LOC) 6N.2; GLUCOSE,POINT OF CARE 116 MG/DL (70-110)
[2018-05-28 19:04] LABS: GLUCOMETER DEV NAME(LOC) 6N.2; GLUCOSE,POINT OF CARE 117 MG/DL (70-110)
[2018-05-28] MEDS: ATORVASTATIN CALCIUM 40 MG TABLET GT SCH (20:56)
[2018-05-28] MEDS: SENNOSIDES 8.8 MG/5 ML SYRUP ORAL.SYG GT SCH (21:36)
[2018-05-29 03:45] VITALS: BP 168/72
[2018-05-29 05:15] LABS: GLUCOMETER DEV NAME(LOC) 6N.1; GLUCOSE,POINT OF CARE 121 MG/DL (70-110)
[2018-05-29] MEDS ORDERED: SODIUM CHLORIDE 0.9% 2,000 ML IV ONE (07:26)
[2018-05-29 07:57] VITALS: BP 179/79
[2018-05-29 08:56] LABS: BASOPHILS % (AUTO) 0.4 % (0.0-2.0); EOSINOPHILS % (AUTO) 3.4 % (1.0-6.0); HEMATOCRIT 25.9 % (41-53); HEMOGLOBIN 9.6 g/dL (13.5-17.5); LYMPHOCYTES # (AUTO) 1.4 K/uL (1.0-4.8); LYMPHOCYTES % (AUTO) 18.7 % (22.0-44.0); MEAN CORPUSCULAR HEMOGLOBIN 34.2 pg (26.0-34.0); MEAN CORPUSCULAR VOLUME 93 fL (80-100); MONOCYTES # (AUTO) 0.5 K/uL (0.1-1.0); MONOCYTES % (AUTO) 6.7 % (2.0-9.0); NEUTROPHILS # (AUTO) 5.5 K/uL (1.8-7.7); NEUTROPHILS % (AUTO) 70.8 % (40.0-70.0); RED CELL DISTRIBUTION WIDTH 17.3 % (11.5-14.5)
[2018-05-29] MEDS: SEVELAMER CARBONATE 800 MG POWDER PACKET GT SCH ×2 (08:56→12:33)
[2018-05-29] MEDS ORDERED: EPOETIN ALFA 10,000 UNITS/ML VIAL SQ SCH (09:00)
[2018-05-29 09:01] LABS: PLATELET COUNT (AUTO) 191 K/uL (150-450)
[2018-05-29] MEDS: PANTOPRAZOLE SODIUM 40 MG/VIAL IVP SCH (12:32)
[2018-05-29] MEDS: SERTRALINE HCL 50 MG TABLET GT SCH (12:33)
[2018-05-29] MEDS: VITAMIN B COMP/VIT C/FOLIC ACID CAPSULE GT SCH (12:33)
[2018-05-29] MEDS: DOCUSATE SODIUM 250 MG CAPSULE GT SCH (12:33)
[2018-05-29 13:00] VITALS: BP 133/80
[2018-05-29 13:28] LABS: GLUCOMETER DEV NAME(LOC) 6N.2; GLUCOSE,POINT OF CARE 131 MG/DL (70-110)
[2018-05-29 13:28] LABS: GLUCOMETER DEV NAME(LOC) 6N.2; GLUCOSE,POINT OF CARE 135 MG/DL (70-110)
[2018-05-29] MEDS ORDERED: SERT50TA12 PO (14:45)
[2018-05-29] MEDS ORDERED: SENN8.6T90 PO (14:45)
[2018-05-29] MEDS ORDERED: SEVEC800 PO (14:46)
[2018-05-29] MEDS ORDERED: FOLI1CAP2 PO (14:47)
[2018-05-29] MEDS ORDERED: ACET-2902 PEG (14:48)
[2018-05-29] MEDS ORDERED: [UNRECOGNIZED DRUG - CODE] PR (14:52)
[2018-05-29] MEDS ORDERED: INSU100V3 SQ (14:55)
== END 2018-05-29 15:15 | DRG 393 ==
LOC: ICU 20:20 → 6N 05-28 00:13
PROVIDERS: ADMIT Hospitalist; ATTEND Hospitalist
PROC: 0W3P8ZZ Control Bleeding in Gastrointestinal Tract, Via Natural or Artificial Opening Endoscopic (ICD-10-PCS; 2018-05-25)
PROC: 3E0G8GC Introduction of Other Therapeutic Substance into Upper GI, Via Natural or Artificial Opening Endoscopic (ICD-10-PCS; principal; 2018-05-25 20:30)
PROC: 30233N1 Transfusion of Nonautologous Red Blood Cells into Peripheral Vein, Percutaneous Approach (ICD-10-PCS; 2018-05-26)
PROC: 5A1D70Z Performance of Urinary Filtration, Intermittent, Less than 6 Hours Per Day (ICD-10-PCS; 2018-05-26)
PROC: 5A1D70Z Performance of Urinary Filtration, Intermittent, Less than 6 Hours Per Day (ICD-10-PCS; 2018-05-29)
DX: K94.21 Gastrostomy hemorrhage (principal); N18.6 End stage renal disease; I12.0 Hypertensive chronic kidney disease with stage 5 chronic kidney disease or end stage renal disease; E78.5 Hyperlipidemia, unspecified; D50.0 Iron deficiency anemia secondary to blood loss (chronic); E11.22 Type 2 diabetes mellitus with diabetic chronic kidney disease; E11.319 Type 2 diabetes mellitus with unspecified diabetic retinopathy without macular edema; R13.10 Dysphagia, unspecified; E83.39 Other disorders of phosphorus metabolism; Y83.8 Other surgical procedures as the cause of abnormal reaction of the patient, or of later complication, without mention of misadventure at the time of the procedure; Y73.8 Miscellaneous gastroenterology and urology devices associated with adverse incidents, not elsewhere classified; Z86.73 Personal history of transient ischemic attack (TIA), and cerebral infarction without residual deficits; Z99.2 Dependence on renal dialysis
CPT/HCPCS: 85014; 85018; 86850; 86900; 86901; 86920; 87040; 87081; C9113; G0378; J0171; J0360; J0885; J1170; J2370; J2704; J7030; J7040; J7050; P9016

== ENCOUNTER → 2018-07-17 | Outpatient (CLI) | payer MEDICARE, OTHER ==
[~2018-07-17] MED LIST changes: -ACET500C4 PO; +ACID1GRA PEG; +AMLO-511 PEG; -AMLO-512 PO; +ASPI-556 PO; -FOLI0.8T22 PO; +FOLI1CAP2 PEG; +INSU100V3 SQ; +LANS30TA4 PEG; -PANT40TA25 PO; +SERT50TA12 PO; +SEVEC800 PO; -SUCR500T PO
== END | disposition home or self-care (01) ==
LOC: RADPV 08:46
PROVIDERS: ATTEND Physical Medicine & Rehabilitation
DX: R13.12 Dysphagia, oropharyngeal phase (principal)
CPT/HCPCS: 74230; 92611

== ENCOUNTER 2018-08-09 13:32 | Inpatient (IN) | payer MEDICARE, OTHER ==
[~2018-08-09] VITALS: Ht 165.1 cm; Wt 63.0 kg
[~2018-08-09 13:32] MED LIST changes: +ATOR40TA28 GT; -ATOR40TA28 PO; +FOLI1CAP2 GT; -FOLI1CAP2 PEG; +SERT50TA12 GT; -SERT50TA12 PO; +SEVEC800 GT; -SEVEC800 PO
[2018-08-09 15:30] VITALS: BP 96/64
[2018-08-09] MEDS ORDERED: LISINOPRIL 5 MG TABLET GT PRN (15:45)
[2018-08-09] MEDS ORDERED: METOCLOPRAMIDE HCL 10 MG/10 ML SOLUTION ORAL.SYG GT SCH (16:00)
[2018-08-09] MEDS: METOCLOPRAMIDE HCL 5 MG TABLET GT SCH ×3 (17:48→21:46)
[2018-08-09 18:54] LABS: GLUCOMETER DEV NAME(LOC) 2WR.1; GLUCOSE,POINT OF CARE 97 MG/DL (70-110)
[2018-08-09 21:46] VITALS: BP 91/54
[2018-08-09] MEDS: APIXABAN 2.5 MG TABLET GT SCH (21:46)
[2018-08-09] MEDS: ATORVASTATIN CALCIUM 40 MG TABLET GT SCH (21:46)
[2018-08-09 21:59] VITALS: BP 101/56
[2018-08-10] MEDS ORDERED: ACETAMINOPHEN 650 MG/20.3 ML SOLUTION UDCUP GT PRN ×2
[2018-08-10 00:24] LABS: GLUCOMETER DEV NAME(LOC) 2WR.2; GLUCOSE,POINT OF CARE 126 MG/DL (70-110)
[2018-08-10 04:00] VITALS: BP 89/52
[2018-08-10 06:00] VITALS: BP 91/53
[2018-08-10 06:43] LABS: GLUCOMETER DEV NAME(LOC) 2WR.2; GLUCOSE,POINT OF CARE 110 MG/DL (70-110)
[2018-08-10 06:58] LABS: BASOPHILS % (AUTO) 0.3 % (0.0-2.0); EOSINOPHILS % (AUTO) 1.9 % (1.0-6.0); HEMATOCRIT 33.6 % (41-53); MEAN CORPUSCULAR HEMOGLOBIN 34.1 pg (26.0-34.0); MEAN CORPUSCULAR HGB CONC 35.6 G/dL (31.0-37.0); MEAN CORPUSCULAR VOLUME 96 fL (80-100); MONOCYTES # (AUTO) 0.9 K/uL (0.1-1.0); MONOCYTES % (AUTO) 13.6 % (2.0-9.0); NEUTROPHILS # (AUTO) 3.3 K/uL (1.8-7.7); NEUTROPHILS % (AUTO) 52.2 % (40.0-70.0); PLATELET COUNT (AUTO) 169 K/uL (150-450); RED BLOOD CELL COUNT(AUTO) 3.51 MIL/uL (4.50-5.90); RED CELL DISTRIBUTION WIDTH 14.3 % (11.5-14.5)
[2018-08-10] MEDS ORDERED: PANTOPRAZOLE SODIUM 40 MG DR TABLET PO SCH (07:00)
[2018-08-10 07:21] LABS: ALBUMIN 3.2 g/dL (3.4-5.0); BILIRUBIN,TOTAL 0.4 mg/dL (0.1-1.0); CALCIUM, TOTAL 9.5 mg/dL (8.8-10.5); CREATININE 10.76 mg/dL (0.60-1.30); POTASSIUM 3.3 mmol/L (3.5-5.1); TOTAL PROTEIN, SERUM 7.4 g/dL (6.4-8.2)
[2018-08-10 08:40] VITALS: BP 91/57
[2018-08-10] MEDS: METOPROLOL TARTRATE 25 MG TABLET GT SCH (09:00)
[2018-08-10] MEDS ORDERED: LANSOPRAZOLE 30 MG SOLUBLE TABLET GT SCH (09:00)
[2018-08-10] MEDS: FAMOTIDINE 20 MG TABLET GT SCH (09:58)
[2018-08-10] MEDS: METOCLOPRAMIDE HCL 5 MG TABLET GT SCH (09:58)
[2018-08-10] MEDS: SERTRALINE HCL 50 MG TABLET GT SCH (09:58)
[2018-08-10] MEDS: APIXABAN 2.5 MG TABLET GT SCH ×2 (09:58→20:29)
[2018-08-10] MEDS ORDERED: METOCLOPRAMIDE HCL 5 MG TABLET GT PRN (10:15)
[2018-08-10] MEDS ORDERED: POTASSIUM CHLORIDE 10% 40 MEQ/30 ML LIQUID UDCUP GT ONE (11:15)
[2018-08-10] MEDS: VITAMIN B COMP/VIT C/FOLIC ACID CAPSULE GT SCH (12:07)
[2018-08-10] MEDS: ACYCLOVIR 5% 5 GM OINTMENT TP SCH ×3 (12:09→20:30)
[2018-08-10] MEDS ORDERED: SODIUM CHLORIDE 0.9% 1,000 ML IV ONE ×2 (12:32→12:33)
[2018-08-10 13:19] LABS: GLUCOMETER DEV NAME(LOC) 2WR.2; GLUCOSE,POINT OF CARE 129 MG/DL (70-110)
[2018-08-10 17:53] LABS: GLUCOMETER DEV NAME(LOC) 2WR.1; GLUCOSE,POINT OF CARE 86 MG/DL (70-110)
[2018-08-10 17:54] VITALS: BP 129/80
[2018-08-10] MEDS: ATORVASTATIN CALCIUM 40 MG TABLET GT SCH (20:29)
[2018-08-10] MEDS: TEMAZEPAM 15 MG CAPSULE PO PRN (20:29)
[2018-08-10] MEDS: COLD CREAM, SKIN EMOLLIENT 340 GM JAR TP SCH (20:41)
[2018-08-10 21:23] LABS: GLUCOMETER DEV NAME(LOC) 2WR.1; GLUCOSE,POINT OF CARE 104 MG/DL (70-110)
[2018-08-11] VITALS: BP 96/52
[2018-08-11 08:30] VITALS: BP 95/60
[2018-08-11] MEDS: COLD CREAM, SKIN EMOLLIENT 340 GM JAR TP SCH ×2 (09:00→20:22)
[2018-08-11] MEDS: METOPROLOL TARTRATE 25 MG TABLET GT SCH (09:00)
[2018-08-11] MEDS: FAMOTIDINE 20 MG TABLET GT SCH (09:29)
[2018-08-11] MEDS: APIXABAN 2.5 MG TABLET GT SCH ×2 (09:29→20:22)
[2018-08-11] MEDS: SERTRALINE HCL 50 MG TABLET GT SCH (09:29)
[2018-08-11] MEDS: ACYCLOVIR 5% 5 GM OINTMENT TP SCH ×4 (09:29→20:22)
[2018-08-11] MEDS: VITAMIN B COMP/VIT C/FOLIC ACID CAPSULE GT SCH (09:30)
[2018-08-11 10:02] LABS: CALCIUM, TOTAL 9.8 mg/dL (8.8-10.5); CREATININE 10.19 mg/dL (0.60-1.30); POTASSIUM 3.7 mmol/L (3.5-5.1)
[2018-08-11 11:24] LABS: GLUCOMETER DEV NAME(LOC) 2WR.1; GLUCOSE,POINT OF CARE 171 MG/DL (70-110)
[2018-08-11] MEDS: SEVELAMER CARBONATE 800 MG POWDER PACKET PO SCH ×2 (12:27→17:54)
[2018-08-11 13:04] LABS: GLUCOMETER DEV NAME(LOC) 2WR.1; GLUCOSE,POINT OF CARE 112 MG/DL (70-110)
[2018-08-11 16:07] VITALS: BP 102/58
[2018-08-11 18:19] LABS: GLUCOMETER DEV NAME(LOC) 2WR.1; GLUCOSE,POINT OF CARE 136 MG/DL (70-110)
[2018-08-11] MEDS: TEMAZEPAM 15 MG CAPSULE PO PRN (20:20)
[2018-08-11] MEDS: ATORVASTATIN CALCIUM 40 MG TABLET GT SCH (20:20)
[2018-08-12 05:29] LABS: GLUCOMETER DEV NAME(LOC) 2WR.1; GLUCOSE,POINT OF CARE 132 MG/DL (70-110)
[2018-08-12 05:30] VITALS: BP 112/65
[2018-08-12] MEDS ORDERED: SODIUM CHLORIDE 0.9% 1,000 ML IV ONE ×2 (08:53)
[2018-08-12 09:00] VITALS: BP 107/57
[2018-08-12] MEDS: COLD CREAM, SKIN EMOLLIENT 340 GM JAR TP SCH ×2 (09:00→21:17)
[2018-08-12] MEDS: METOPROLOL TARTRATE 25 MG TABLET GT SCH (09:00)
[2018-08-12] MEDS: SEVELAMER CARBONATE 800 MG POWDER PACKET PO SCH ×3 (09:15→17:14)
[2018-08-12] MEDS: APIXABAN 2.5 MG TABLET GT SCH ×2 (09:15→20:59)
[2018-08-12] MEDS: FAMOTIDINE 20 MG TABLET GT SCH (09:15)
[2018-08-12] MEDS: VITAMIN B COMP/VIT C/FOLIC ACID CAPSULE GT SCH (09:15)
[2018-08-12] MEDS: SERTRALINE HCL 50 MG TABLET GT SCH (09:16)
[2018-08-12] MEDS: ACYCLOVIR 5% 5 GM OINTMENT TP SCH ×4 (09:16→20:59)
[2018-08-12 15:35] VITALS: BP 107/57
[2018-08-12] MEDS ORDERED: HEPARIN SODIUM,PORCINE 1,000 UNITS/ML VIAL IVP ONE (16:32)
[2018-08-12 17:44] LABS: GLUCOMETER DEV NAME(LOC) 2WR.1; GLUCOSE,POINT OF CARE 84 MG/DL (70-110)
[2018-08-12] MEDS: TEMAZEPAM 15 MG CAPSULE PO PRN (20:59)
[2018-08-12] MEDS: ATORVASTATIN CALCIUM 40 MG TABLET GT SCH (20:59)
[2018-08-13] VITALS: BP 123/69
[2018-08-13 06:34] LABS: GLUCOMETER DEV NAME(LOC) 2WR.2; GLUCOSE,POINT OF CARE 107 MG/DL (70-110)
[2018-08-13] MEDS: SEVELAMER CARBONATE 800 MG POWDER PACKET PO SCH ×2 (07:47→12:53)
[2018-08-13] MEDS: METOPROLOL TARTRATE 25 MG TABLET GT SCH (07:48)
[2018-08-13] MEDS: VITAMIN B COMP/VIT C/FOLIC ACID CAPSULE GT SCH (07:48)
[2018-08-13] MEDS: SERTRALINE HCL 50 MG TABLET GT SCH (07:48)
[2018-08-13] MEDS: APIXABAN 2.5 MG TABLET GT SCH ×2 (07:48→20:48)
[2018-08-13] MEDS: FAMOTIDINE 20 MG TABLET GT SCH (07:48)
[2018-08-13] MEDS: COLD CREAM, SKIN EMOLLIENT 340 GM JAR TP SCH ×2 (07:49→20:48)
[2018-08-13] MEDS: ACYCLOVIR 5% 5 GM OINTMENT TP SCH ×4 (07:50→20:48)
[2018-08-13 08:00] VITALS: BP 117/64
[2018-08-13 15:24] VITALS: BP 119/59
[2018-08-13] MEDS ORDERED: LIDOCAINE/PF 1% 2 ML VIAL INJ ONE (16:33)
[2018-08-13] MEDS: SEVELAMER CARBONATE 800 MG POWDER PACKET GT SCH (17:45)
[2018-08-13 18:44] LABS: GLUCOMETER DEV NAME(LOC) 2WR.2; GLUCOSE,POINT OF CARE 89 MG/DL (70-110)
[2018-08-13] MEDS: ATORVASTATIN CALCIUM 40 MG TABLET GT SCH (20:48)
[2018-08-13] MEDS: TEMAZEPAM 15 MG CAPSULE GT PRN (20:54)
[2018-08-14] VITALS: BP 113/69
[2018-08-14 06:24] LABS: GLUCOMETER DEV NAME(LOC) 2WR.1; GLUCOSE,POINT OF CARE 80 MG/DL (70-110)
[2018-08-14] MEDS ORDERED: SEVELAMER CARBONATE 800 MG POWDER PACKET GT SCH (07:30)
[2018-08-14 07:48] VITALS: BP 102/67
[2018-08-14] MEDS: ACYCLOVIR 5% 5 GM OINTMENT TP SCH ×4 (08:30→23:26)
[2018-08-14] MEDS: SEVELAMER CARBONATE 800 MG POWDER PACKET GT SCH ×3 (08:30→18:03)
[2018-08-14] MEDS: FAMOTIDINE 20 MG TABLET GT SCH (08:31)
[2018-08-14] MEDS: METOPROLOL TARTRATE 25 MG TABLET GT SCH (08:31)
[2018-08-14] MEDS: SERTRALINE HCL 50 MG TABLET GT SCH (08:31)
[2018-08-14] MEDS: VITAMIN B COMP/VIT C/FOLIC ACID CAPSULE GT SCH (08:31)
[2018-08-14] MEDS: APIXABAN 2.5 MG TABLET GT SCH ×2 (08:31→23:25)
[2018-08-14] MEDS: COLD CREAM, SKIN EMOLLIENT 340 GM JAR TP SCH ×2 (08:44→23:27)
[2018-08-14] MEDS ORDERED: SODIUM CHLORIDE 0.9% 1,000 ML IV ONE ×2 (12:54)
[2018-08-14] MEDS ORDERED: METOCLOPRAMIDE HCL 10 MG/10 ML SOLUTION ORAL.SYG GT SCH (16:00)
[2018-08-14 16:11] VITALS: BP 123/64
[2018-08-14 19:19] LABS: CALCIUM, TOTAL 9.4 mg/dL (8.8-10.5); CREATININE 11.36 mg/dL (0.60-1.30); POTASSIUM 3.8 mmol/L (3.5-5.1)
[2018-08-14 19:24] LABS: ALBUMIN 3.3 g/dL (3.4-5.0)
[2018-08-14 23:13] LABS: GLUCOMETER DEV NAME(LOC) 2WR.2; GLUCOSE,POINT OF CARE 58 MG/DL (70-110)
[2018-08-14] MEDS: TEMAZEPAM 15 MG CAPSULE GT PRN (23:25)
[2018-08-14] MEDS: ATORVASTATIN CALCIUM 40 MG TABLET GT SCH (23:26)
[2018-08-15] MEDS: METOCLOPRAMIDE HCL 10 MG/10 ML SOLUTION ORAL.SYG GT SCH ×4 (00:07→20:23)
[2018-08-15 00:12] VITALS: BP 134/72
[2018-08-15 07:00] VITALS: BP 121/58
[2018-08-15] MEDS: SERTRALINE HCL 50 MG TABLET GT SCH (08:16)
[2018-08-15] MEDS: SEVELAMER CARBONATE 800 MG POWDER PACKET GT SCH ×3 (08:16→17:07)
[2018-08-15] MEDS: ACYCLOVIR 5% 5 GM OINTMENT TP SCH ×4 (08:16→20:25)
[2018-08-15] MEDS: METOPROLOL TARTRATE 25 MG TABLET GT SCH (08:17)
[2018-08-15] MEDS: APIXABAN 2.5 MG TABLET GT SCH ×2 (08:17→20:23)
[2018-08-15] MEDS: FAMOTIDINE 20 MG TABLET GT SCH (08:17)
[2018-08-15] MEDS: VITAMIN B COMP/VIT C/FOLIC ACID CAPSULE GT SCH (08:17)
[2018-08-15] MEDS: COLD CREAM, SKIN EMOLLIENT 340 GM JAR TP SCH ×2 (09:20→20:24)
[2018-08-15 15:30] VITALS: BP 138/63
[2018-08-15 17:19] LABS: GLUCOMETER DEV NAME(LOC) 2WR.1; GLUCOSE,POINT OF CARE 111 MG/DL (70-110)
[2018-08-15] MEDS: TEMAZEPAM 15 MG CAPSULE GT PRN (20:22)
[2018-08-15] MEDS: ATORVASTATIN CALCIUM 40 MG TABLET GT SCH (20:22)
[2018-08-15 23:49] VITALS: BP 139/72
[2018-08-16 07:05] VITALS: BP 114/66
[2018-08-16] MEDS: SEVELAMER CARBONATE 800 MG POWDER PACKET GT SCH ×3 (08:45→16:59)
[2018-08-16] MEDS: APIXABAN 2.5 MG TABLET GT SCH ×2 (08:46→20:23)
[2018-08-16] MEDS: VITAMIN B COMP/VIT C/FOLIC ACID CAPSULE GT SCH (08:46)
[2018-08-16] MEDS: METOCLOPRAMIDE HCL 10 MG/10 ML SOLUTION ORAL.SYG GT SCH ×3 (08:46→20:24)
[2018-08-16] MEDS: FAMOTIDINE 20 MG TABLET GT SCH (08:46)
[2018-08-16] MEDS: ACYCLOVIR 5% 5 GM OINTMENT TP SCH (08:47)
[2018-08-16] MEDS: SERTRALINE HCL 50 MG TABLET GT SCH (08:47)
[2018-08-16] MEDS: COLD CREAM, SKIN EMOLLIENT 340 GM JAR TP SCH ×2 (08:47→20:24)
[2018-08-16] MEDS: METOPROLOL TARTRATE 25 MG TABLET GT SCH (08:47)
[2018-08-16] MEDS ORDERED: SODIUM CHLORIDE 0.9% 1,000 ML IV ONE ×2 (12:53)
[2018-08-16] MEDS ORDERED: LIDOCAINE/PF 1% 2 ML VIAL INJ ONE (15:29)
[2018-08-16] MEDS ORDERED: HEPARIN SODIUM,PORCINE 1,000 UNITS/ML VIAL IVP ONE (15:29)
[2018-08-16 15:55] VITALS: BP 158/83
[2018-08-16] MEDS: TEMAZEPAM 15 MG CAPSULE GT PRN (20:23)
[2018-08-16] MEDS: ATORVASTATIN CALCIUM 40 MG TABLET GT SCH (20:23)
[2018-08-16 23:30] VITALS: BP 141/74
[2018-08-17 07:26] LABS: CALCIUM, TOTAL 9.5 mg/dL (8.8-10.5); CREATININE 10.12 mg/dL (0.60-1.30); PHOSPHORUS 5.5 mg/dL (2.5-4.9); POTASSIUM 3.6 mmol/L (3.5-5.1)
[2018-08-17 07:40] VITALS: BP 144/75
[2018-08-17] MEDS: SEVELAMER CARBONATE 800 MG POWDER PACKET GT SCH ×3 (07:48→17:55)
[2018-08-17] MEDS: METOCLOPRAMIDE HCL 10 MG/10 ML SOLUTION ORAL.SYG GT SCH ×4 (07:48→20:23)
[2018-08-17] MEDS: METOPROLOL TARTRATE 25 MG TABLET GT SCH (07:48)
[2018-08-17] MEDS: SERTRALINE HCL 50 MG TABLET GT SCH (07:48)
[2018-08-17] MEDS: COLD CREAM, SKIN EMOLLIENT 340 GM JAR TP SCH ×2 (07:49→20:23)
[2018-08-17] MEDS: APIXABAN 2.5 MG TABLET GT SCH ×2 (07:49→20:22)
[2018-08-17] MEDS: LISINOPRIL 10 MG TABLET GT SCH (07:49)
[2018-08-17] MEDS: VITAMIN B COMP/VIT C/FOLIC ACID CAPSULE GT SCH (07:49)
[2018-08-17] MEDS: FAMOTIDINE 20 MG TABLET GT SCH (07:49)
[2018-08-17 09:19] LABS: BASOPHILS % (AUTO) 0.8 % (0.0-2.0); EOSINOPHILS % (AUTO) 2.7 % (1.0-6.0); HEMATOCRIT 29.5 % (41-53); HEMOGLOBIN 10.7 g/dL (13.5-17.5); LYMPHOCYTES # (AUTO) 1.7 K/uL (1.0-4.8); LYMPHOCYTES % (AUTO) 27.3 % (22.0-44.0); MEAN CORPUSCULAR HEMOGLOBIN 34.3 pg (26.0-34.0); MEAN CORPUSCULAR HGB CONC 36.2 G/dL (31.0-37.0); MEAN CORPUSCULAR VOLUME 95 fL (80-100); MONOCYTES # (AUTO) 0.7 K/uL (0.1-1.0); MONOCYTES % (AUTO) 10.5 % (2.0-9.0); NEUTROPHILS # (AUTO) 3.7 K/uL (1.8-7.7); NEUTROPHILS % (AUTO) 58.7 % (40.0-70.0); PLATELET COUNT (AUTO) 163 K/uL (150-450); RED BLOOD CELL COUNT(AUTO) 3.11 MIL/uL (4.50-5.90); RED CELL DISTRIBUTION WIDTH 14.3 % (11.5-14.5)
[2018-08-17 15:00] VITALS: BP 117/67
[2018-08-17] MEDS ORDERED: ALTEPLASE 2 MG/VIAL IVCATH ONE (15:30)
[2018-08-17] MEDS ORDERED: LIDOCAINE/PF 1% 2 ML VIAL INJ ONE (15:32)
[2018-08-17] MEDS ORDERED: HEPARIN SODIUM,PORCINE 1,000 UNITS/ML 10 ML VIAL ONE (15:39)
[2018-08-17] MEDS ORDERED: IODIXANOL 320 MG/ML 100 ML VIAL ONE (15:42)
[2018-08-17] MEDS ORDERED: LIDOCAINE/PF 1% 5 ML VIAL ONE (15:43)
[2018-08-17] MEDS ORDERED: HEPARIN SODIUM 1000 UNITS/NS 500 ML ONE (15:43)
[2018-08-17] MEDS: ATORVASTATIN CALCIUM 40 MG TABLET GT SCH (20:22)
[2018-08-17] MEDS: TEMAZEPAM 15 MG CAPSULE GT PRN (20:22)
[2018-08-18] MEDS ORDERED: APIX2.5T GT (00:15)
[2018-08-18] MEDS ORDERED: LISI-661 GT (00:15)
[2018-08-18] MEDS ORDERED: METO25 GT (00:15)
[2018-08-18] MEDS ORDERED: METO5TAB95 GT (00:15)
[2018-08-18] MEDS ORDERED: FAMO20 GT (00:15)
[2018-08-18 02:00] VITALS: BP 116/60
[2018-08-18] MEDS: SEVELAMER CARBONATE 800 MG POWDER PACKET GT SCH ×3 (07:29→17:56)
[2018-08-18 08:30] VITALS: BP 109/61
[2018-08-18] MEDS: VITAMIN B COMP/VIT C/FOLIC ACID CAPSULE GT SCH (08:50)
[2018-08-18] MEDS: LISINOPRIL 10 MG TABLET GT SCH ×2 (08:50→09:46)
[2018-08-18] MEDS: METOPROLOL TARTRATE 25 MG TABLET GT SCH (08:51)
[2018-08-18] MEDS: SERTRALINE HCL 50 MG TABLET GT SCH (08:51)
[2018-08-18] MEDS: FAMOTIDINE 20 MG TABLET GT SCH (08:51)
[2018-08-18] MEDS: APIXABAN 2.5 MG TABLET GT SCH ×2 (08:52→20:39)
[2018-08-18] MEDS: METOCLOPRAMIDE HCL 10 MG/10 ML SOLUTION ORAL.SYG GT SCH ×3 (09:45→20:39)
[2018-08-18] MEDS: COLD CREAM, SKIN EMOLLIENT 340 GM JAR TP SCH ×2 (09:46→20:40)
[2018-08-18 17:46] VITALS: BP 122/70
[2018-08-18] MEDS: ATORVASTATIN CALCIUM 40 MG TABLET GT SCH (20:39)
[2018-08-18] MEDS: TEMAZEPAM 15 MG CAPSULE GT PRN (20:39)
[2018-08-19] VITALS: BP 132/75
[2018-08-19] MEDS: SEVELAMER CARBONATE 800 MG POWDER PACKET GT SCH (08:27)
[2018-08-19] MEDS: APIXABAN 2.5 MG TABLET GT SCH (08:27)
[2018-08-19] MEDS: FAMOTIDINE 20 MG TABLET GT SCH (08:27)
[2018-08-19] MEDS: VITAMIN B COMP/VIT C/FOLIC ACID CAPSULE GT SCH (08:28)
[2018-08-19] MEDS: SERTRALINE HCL 50 MG TABLET GT SCH (08:28)
[2018-08-19] MEDS: METOPROLOL TARTRATE 25 MG TABLET GT SCH (08:28)
[2018-08-19] MEDS: LISINOPRIL 10 MG TABLET GT SCH (08:29)
[2018-08-19 08:30] VITALS: BP 77/42
[2018-08-19 08:35] VITALS: BP 89/54
[2018-08-19] MEDS: METOCLOPRAMIDE HCL 10 MG/10 ML SOLUTION ORAL.SYG GT SCH (08:35)
[2018-08-19 08:53] VITALS: BP 100/59
== END 2018-08-19 10:50 | disposition home health service (06) | DRG 981 ==
LOC: 2WR 13:32
PROVIDERS: ADMIT Physical Medicine & Rehabilitation; ATTEND Physical Medicine & Rehabilitation
PROC: 5A1D70Z Performance of Urinary Filtration, Intermittent, Less than 6 Hours Per Day (ICD-10-PCS; 2018-08-10)
PROC: 5A1D70Z Performance of Urinary Filtration, Intermittent, Less than 6 Hours Per Day (ICD-10-PCS; 2018-08-12)
PROC: 5A1D70Z Performance of Urinary Filtration, Intermittent, Less than 6 Hours Per Day (ICD-10-PCS; 2018-08-14)
PROC: 5A1D70Z Performance of Urinary Filtration, Intermittent, Less than 6 Hours Per Day (ICD-10-PCS; 2018-08-16)
PROC: 037C3ZZ Dilation of Left Radial Artery, Percutaneous Approach (ICD-10-PCS; principal; 2018-08-17)
PROC: B51W1ZZ Fluoroscopy of Dialysis Shunt/Fistula using Low Osmolar Contrast (ICD-10-PCS; 2018-08-17)
PROC: 5A1D70Z Performance of Urinary Filtration, Intermittent, Less than 6 Hours Per Day (ICD-10-PCS; 2018-08-18)
DX: I69.351 Hemiplegia and hemiparesis following cerebral infarction affecting right dominant side (principal); I63.9 Cerebral infarction, unspecified; N18.6 End stage renal disease; I13.2 Hypertensive heart and chronic kidney disease with heart failure and with stage 5 chronic kidney disease, or end stage renal disease; T82.858A Stenosis of other vascular prosthetic devices, implants and grafts, initial encounter; R13.10 Dysphagia, unspecified; E11.22 Type 2 diabetes mellitus with diabetic chronic kidney disease; E11.319 Type 2 diabetes mellitus with unspecified diabetic retinopathy without macular edema; F32.9 Major depressive disorder, single episode, unspecified; E83.39 Other disorders of phosphorus metabolism; I50.9 Heart failure, unspecified; I48.91 Unspecified atrial fibrillation; I25.10 Atherosclerotic heart disease of native coronary artery without angina pectoris; E78.5 Hyperlipidemia, unspecified; D63.8 Anemia in other chronic diseases classified elsewhere; Y83.2 Surgical operation with anastomosis, bypass or graft as the cause of abnormal reaction of the patient, or of later complication, without mention of misadventure at the time of the procedure; I25.2 Old myocardial infarction; Z99.2 Dependence on renal dialysis; Z83.3 Family history of diabetes mellitus; Z93.1 Gastrostomy status; Y92.098 Other place in other non-institutional residence as the place of occurrence of the external cause
CPT/HCPCS: 36147; 74018; 76000; 76937; 84100; 87081; 87340; 92508; 92526; 97110; 97112; 97116; 97150; 97162; 97166; 97530; 97535; 99366; J1644; J2997; J3490; J7030; Q9967

== ENCOUNTER → 2018-10-11 | Outpatient (CLI) | payer MEDICARE, OTHER ==
[~2018-10-11] MED LIST changes: -ACID1GRA PEG; -AMLO-511 PEG; +APIX2.5T GT; -ASPI-556 PO; -CARV6 PO; +FAMO20 GT; -INSU100V3 SQ; -LANS30TA4 PEG; +LISI-661 GT; +METO25 GT; +METO5TAB95 GT
== END | disposition home or self-care (01) ==
LOC: RADPV 09:30
PROVIDERS: ATTEND Physical Medicine & Rehabilitation
DX: R13.12 Dysphagia, oropharyngeal phase (principal)
CPT/HCPCS: 74230; 92611

== ENCOUNTER → 2018-12-20 | Outpatient (CLI) | payer MEDICARE, OTHER | END | disposition home or self-care (01) | LOC: RADPV 13:02 | PROVIDERS: ATTEND Physical Medicine & Rehabilitation | DX: M19.012 Primary osteoarthritis, left shoulder (principal) ==

== ENCOUNTER 2019-02-13 12:01 | Day surgery (SDC) | payer MEDICARE, OTHER ==
[~2019-02-13] VITALS: Ht 165.1 cm; Wt 59.0 kg
[~2019-02-13 12:01] MED LIST changes: +AMLO10TA7 PO; +ENAL2.5 PO; -FAMO20 GT; -FOLI1CAP2 GT; +INSNOV SQ; -LISI-661 GT; +MELA5TAB3 PO; +MEMA5 PO; -METO25 GT; -METO5TAB95 GT; +OMEP20 PO; +ONDA4 PO; +POLY238P2 PO; +SERT50TA12 PO; -SEVEC800 GT; +SODIUM CHLORIDE 0.9% 1,000 ML IV ONE
[2019-02-13] MEDS ORDERED: LIDOCAINE/PF 2% 5 ML VIAL IM ONE (12:02)
[2019-02-13] MEDS ORDERED: PROPOFOL 1% 20 ML VIAL IVP ONE (12:02)
[2019-02-13 13:20] LABS: GLUCOMETER DEV NAME(LOC) SDS.; GLUCOSE,POINT OF CARE 79 MG/DL (70-110)
== END 2019-02-13 15:30 | disposition home or self-care (01) ==
LOC: SURGERY 12:01
PROVIDERS: ATTEND Student in an Organized Health Care Education/Training Program
DX: R11.10 Vomiting, unspecified (principal); R68.81 Early satiety; K25.9 Gastric ulcer, unspecified as acute or chronic, without hemorrhage or perforation; K31.89 Other diseases of stomach and duodenum; E11.22 Type 2 diabetes mellitus with diabetic chronic kidney disease; D64.9 Anemia, unspecified; E78.5 Hyperlipidemia, unspecified; I12.0 Hypertensive chronic kidney disease with stage 5 chronic kidney disease or end stage renal disease; N18.6 End stage renal disease; K21.9 Gastro-esophageal reflux disease without esophagitis; I69.898 Other sequelae of other cerebrovascular disease; Z99.2 Dependence on renal dialysis; Z79.899 Other long term (current) drug therapy; Z93.1 Gastrostomy status; Z87.891 Personal history of nicotine dependence; Z79.01 Long term (current) use of anticoagulants
CPT/HCPCS: 43239; 82962; 88305; 88312; 88313; 93005; J2704; J3490; J7030